=== PATIENT | female | born 1960 | race Caucasian/White ===

== ENCOUNTER 2019-03-14 08:31 | Emergency (ER) | payer MEDICAID ==
[~2019-03-14] VITALS: Ht 154.9 cm; Wt 74.9 kg
[2019-03-14 09:20] LABS: BASOPHILS # (AUTO) 0.1 X10'3 (0-0.2); BASOPHILS % (AUTO) 0.9 % (0-1); EOSINOPHILS # (AUTO) 0.1 X10'3 (0-0.9); EOSINOPHILS % (AUTO) 1.5 % (0-6); HEMATOCRIT 47.5 % (35.0-45.0); HEMOGLOBIN 16.3 g/dl (12.0-16.0); LYMPHOCYTES # (AUTO) 2.4 X10'3 (1.1-4.8); LYMPHOCYTES % (AUTO) 33.2 % (21-51); MEAN CORPUSCULAR HEMOGLOBIN 31.1 PG (27.0-31.0); MEAN CORPUSCULAR HGB CONC 34.4 g/dL (33.0-36.5); MEAN CORPUSCULAR VOLUME 90.5 FL (78-98); MEAN PLATELET VOLUME 8.2 FL (7.4-10.4); MONOCYTES # (AUTO) 0.6 X10'3 (0-0.9); MONOCYTES % (AUTO) 8.5 % (2-12); NEUTROPHILS % (AUTO) 55.9 % (42-75); PLATELET COUNT 274 X10'3 (140-440); RED BLOOD COUNT 5.25 X10'6 (4.20-5.60); WHITE BLOOD COUNT 7.1 X10'3 (4.5-11.0)
[2019-03-14 09:25] LABS: PARTIAL THROMBOPLASTIN TIME 26 SECONDS (22-32)
[2019-03-14] MEDS ORDERED: oxyCODONE IR 5mg (immed. release) tablet PO ONE (09:25)
[2019-03-14 09:41] LABS: ALANINE AMINOTRANSFERASE 52 U/L (12-78); ALBUMIN 3.5 G/DL (3.4-5.0); ALBUMIN/GLOBULIN RATIO 0.8 (1.1-1.5); ALKALINE PHOSPHATASE 117 IU/L (46-116); ANION GAP 12 (8-16); ASPARTATE AMINO TRANSFERASE 38 U/L (10-37); BILIRUBIN,TOTAL 0.3 MG/DL (0.1-1.0); BLOOD UREA NITROGEN 12 MG/DL (7-18); BUN/CREATININE RATIO 17.4 (6.6-38.0); CALCIUM 9.1 MG/DL (8.5-10.1); CHLORIDE 107 MMOL/L (99-107); CREATININE 0.69 MG/DL (0.40-0.90); GLUCOSE 116 MG/DL (70-104); POTASSIUM 4.1 MMOL/L (3.5-5.1); SODIUM 142 MMOL/L (135-145); TOTAL CARBON DIOXIDE 22.8 MMOL/L (24-32); TOTAL PROTEIN 8.1 G/DL (6.4-8.2); eGFR 87 ML/MIN
[2019-03-14 10:09] VITALS: BP 157/101
== END 2019-03-14 10:11 | disposition home or self-care (01) ==
LOC: ER 08:32
DX: R07.89 Other chest pain (principal); Z88.0 Allergy status to penicillin
CPT/HCPCS: 36415; 71045; 80053; 84484; 85025; 85610; 85730; 93005; 99284

== ENCOUNTER 2019-04-11 11:32 | Inpatient (IN) | payer MEDICAID ==
[~2019-04-11] VITALS: Ht 154.9 cm; Wt 72.0 kg
[2019-04-11] MEDS ORDERED: vancomycin/NS 1 GM ADD-VANTAGE 250 ML IV ONE (14:55)
[2019-04-11] MEDS ORDERED: morphine 4 MG/ML inj SYRINge IV ONE (15:15)
[2019-04-11 15:19] LABS: ALBUMIN 3.3 G/DL (3.4-5.0); ANION GAP 9 (8-16); BILIRUBIN,TOTAL 0.2 MG/DL (0.1-1.0); BLOOD UREA NITROGEN 13 MG/DL (7-18); BUN/CREATININE RATIO 16.5 (6.6-38.0); CALCIUM 9.1 MG/DL (8.5-10.1); CHLORIDE 105 MMOL/L (99-107); CREATININE 0.79 MG/DL (0.40-0.90); GLUCOSE 124 MG/DL (70-104); SODIUM 139 MMOL/L (135-145); TOTAL CARBON DIOXIDE 24.7 MMOL/L (24-32); TOTAL PROTEIN 7.9 G/DL (6.4-8.2); eGFR 74 ML/MIN
[2019-04-11 15:20] LABS: ALANINE AMINOTRANSFERASE 17 U/L (12-78); ALBUMIN/GLOBULIN RATIO 0.7 (1.1-1.5); ALKALINE PHOSPHATASE 115 IU/L (46-116); ASPARTATE AMINO TRANSFERASE 21 U/L (10-37)
[2019-04-11 15:22] LABS: BASOPHILS # (AUTO) 0.1 X10'3 (0-0.2); BASOPHILS % (AUTO) 0.8 % (0-1); EOSINOPHILS # (AUTO) 0.1 X10'3 (0-0.9); HEMOGLOBIN 15.8 g/dl (12.0-16.0); LYMPHOCYTES # (AUTO) 3.2 X10'3 (1.1-4.8); LYMPHOCYTES % (AUTO) 27.8 % (21-51); MEAN CORPUSCULAR HEMOGLOBIN 31.2 PG (27.0-31.0); MEAN CORPUSCULAR HGB CONC 34.3 g/dL (33.0-36.5); MEAN PLATELET VOLUME 7.9 FL (7.4-10.4); MONOCYTES # (AUTO) 0.6 X10'3 (0-0.9); MONOCYTES % (AUTO) 4.9 % (2-12); NEUTROPHILS # (AUTO) 7.6 X10'3 (1.8-7.7); NEUTROPHILS % (AUTO) 65.5 % (42-75); PLATELET COUNT 325 X10'3 (140-440); RED BLOOD COUNT 5.05 X10'6 (4.20-5.60); RED CELL DISTRIBUTION WIDTH 12.9 % (11.5-14.5); WHITE BLOOD COUNT 11.5 X10'3 (4.5-11.0)
[2019-04-11] MEDS ORDERED: mag hydrox/Alum hydrox/simeth 30ml oral suspension PO PRN (16:15)
[2019-04-11] MEDS ORDERED: acetaminophen 325mg tablet PO PRN ×2 (16:15)
[2019-04-11] MEDS ORDERED: magnesium hydroxide 30ml (MOM) UD suspension PO PRN (16:15)
[2019-04-11] MEDS ORDERED: ondansetron/PF 4mg/2ml inj IV PRN (16:15)
[2019-04-11] MEDS ORDERED: magnesium Cl slow-release 64mg tablet PO PRN (16:15)
[2019-04-11] MEDS ORDERED: potassium CL 10mEq/100ml bag 100 ML IV PRN ×2 (16:15)
[2019-04-11] MEDS ORDERED: magnesium 4gm in 100ml NS 100 ML IV PRN (16:15)
[2019-04-11] MEDS ORDERED: morphine 2 MG/ML inj. syringe IV PRN ×2 (16:15)
[2019-04-11] MEDS ORDERED: magnesium 2GM in 50ml NS 50 ML IV PRN (16:15)
[2019-04-11] MEDS ORDERED: potassium Cl 20 mEq SR tablet PO PRN ×2 (16:15)
[2019-04-11] MEDS ORDERED: AMOX-580 PO (16:30)
[2019-04-11] MEDS ORDERED: LISI40TA4 PO (16:31)
[2019-04-11] MEDS ORDERED: TEMA15CA PO (16:31)
[2019-04-11] MEDS ORDERED: BUSP7.5T4 PO (16:32)
[2019-04-11] MEDS ORDERED: CETI10TA14 PO (16:32)
[2019-04-11] MEDS ORDERED: ALBU8.5H8 INH (16:33)
[2019-04-11] MEDS ORDERED: BREX2TAB PO (16:45)
[2019-04-11] MEDS ORDERED: SOFO1TAB3 PO (16:45)
[2019-04-11] MEDS ORDERED: cetirizine 10mg tablet PO PRN (18:10)
[2019-04-11] MEDS ORDERED: iohexol 300mg/ml 100ml inj. ONE (18:35)
--- NOTE | 2019-04-11 19:00 | NUR ---
PT ARRIVED TO [facility]014[facility] FROM ER. PT AMBULATED TO BED FROM . VSS. RECEIVED REPORT FROM YAEL WILLIS PRIOR TO PT'S ARRIVAL.
[2019-04-11] MEDS: HYDROcodone/acetaminophen 5mg/325mg tablet PO PRN (19:16)
[2019-04-11 19:18] VITALS: BP 139/80
[2019-04-11] MEDS: SOFOSBUVIR VELPATASVIR PO SCH (20:55)
[2019-04-11] MEDS: BREXPIPRAZOLE 1 MG PO SCH (20:55)
[2019-04-11] MEDS: lisinopril 20mg tablet PO SCH (20:58)
[2019-04-11] MEDS: temazepam 15mg capsule PO SCH (20:58)
[2019-04-11] MEDS: busPIRone 15mg tablet PO SCH (20:58)
[2019-04-11 22:00] VITALS: BP 114/71
[2019-04-12] MEDS: vancomycin/NS 1 GM ADD-VANTAGE 250 ML IV SCH ×2 (03:33→15:58)
[2019-04-12 06:00] VITALS: BP 112/70
[2019-04-12 06:03] LABS: BASOPHILS % (AUTO) 0.2 % (0-1); EOSINOPHILS # (AUTO) 0.2 X10'3 (0-0.9); EOSINOPHILS % (AUTO) 2.1 % (0-6); HEMATOCRIT 42.4 % (35.0-45.0); HEMOGLOBIN 14.5 g/dl (12.0-16.0); LYMPHOCYTES # (AUTO) 2.8 X10'3 (1.1-4.8); LYMPHOCYTES % (AUTO) 37.6 % (21-51); MEAN CORPUSCULAR HEMOGLOBIN 31.2 PG (27.0-31.0); MEAN CORPUSCULAR HGB CONC 34.1 g/dL (33.0-36.5); MEAN CORPUSCULAR VOLUME 91.4 FL (78-98); MEAN PLATELET VOLUME 7.7 FL (7.4-10.4); MONOCYTES # (AUTO) 0.5 X10'3 (0-0.9); NEUTROPHILS % (AUTO) 53.1 % (42-75); PLATELET COUNT 278 X10'3 (140-440); RED BLOOD COUNT 4.64 X10'6 (4.20-5.60); RED CELL DISTRIBUTION WIDTH 12.7 % (11.5-14.5); WHITE BLOOD COUNT 7.5 X10'3 (4.5-11.0)
[2019-04-12 06:16] LABS: ALBUMIN 2.6 G/DL (3.4-5.0); ANION GAP 10 (8-16); BLOOD UREA NITROGEN 14 MG/DL (7-18); BUN/CREATININE RATIO 18.2 (6.6-38.0); CALCIUM 8.6 MG/DL (8.5-10.1); CHLORIDE 108 MMOL/L (99-107); CREATININE 0.77 MG/DL (0.40-0.90); GLUCOSE 97 MG/DL (70-104); POTASSIUM 3.8 MMOL/L (3.5-5.1); SODIUM 141 MMOL/L (135-145); TOTAL CARBON DIOXIDE 23.5 MMOL/L (24-32); eGFR 76 ML/MIN
--- NOTE | 2019-04-12 06:33 | NUR ---
Problems reprioritized. Patient report given, questions answered & plan of care reviewed with cam Oh.
[2019-04-12] MEDS: K and/or MAG REPLACEMENT MC SCH (08:00)
[2019-04-12] MEDS: busPIRone 15mg tablet PO SCH ×2 (08:49→20:25)
[2019-04-12] MEDS: enoxaparin 40mg/0.4ml syringe SQ SCH (08:49)
[2019-04-12 10:15] VITALS: BP 89/33
--- NOTE | 2019-04-12 11:30 | NUR ---
Pt admit w/ R hand cellulitis PO 100% avg heart healthy meals meeting protein needs. Addendum: 04/12/19 at [address] Amended: Links added.
[2019-04-12] MEDS: HYDROcodone/acetaminophen 5mg/325mg tablet PO PRN (17:36)
[2019-04-12 18:00] VITALS: BP 151/86
--- NOTE | 2019-04-12 18:23 | NUR ---
Report to Tierney CONLEY
[2019-04-12] MEDS: lisinopril 20mg tablet PO SCH (20:25)
[2019-04-12] MEDS: lactobacillus rhamnosus 10,000 MMU CELLS/CAPSULE PO SCH (20:25)
[2019-04-12] MEDS: temazepam 15mg capsule PO SCH (20:25)
[2019-04-12] MEDS: SOFOSBUVIR VELPATASVIR PO SCH (20:26)
[2019-04-12] MEDS: BREXPIPRAZOLE 1 MG PO SCH (20:27)
[2019-04-12 22:00] VITALS: BP 113/69
[2019-04-13] MEDS: vancomycin/NS 1 GM ADD-VANTAGE 250 ML IV SCH (02:30)
[2019-04-13] MEDS ORDERED: VANCOMYCIN LEVEL IV ONE (02:30)
[2019-04-13 02:55] LABS: BASOPHILS # (AUTO) 0.1 X10'3 (0-0.2); BASOPHILS % (AUTO) 0.8 % (0-1); EOSINOPHILS # (AUTO) 0.2 X10'3 (0-0.9); EOSINOPHILS % (AUTO) 2.4 % (0-6); HEMATOCRIT 42.3 % (35.0-45.0); HEMOGLOBIN 14.5 g/dl (12.0-16.0); LYMPHOCYTES # (AUTO) 3.1 X10'3 (1.1-4.8); LYMPHOCYTES % (AUTO) 40.8 % (21-51); MEAN CORPUSCULAR HEMOGLOBIN 31.2 PG (27.0-31.0); MEAN CORPUSCULAR HGB CONC 34.4 g/dL (33.0-36.5); MEAN CORPUSCULAR VOLUME 90.7 FL (78-98); MEAN PLATELET VOLUME 7.6 FL (7.4-10.4); MONOCYTES # (AUTO) 0.5 X10'3 (0-0.9); MONOCYTES % (AUTO) 7.2 % (2-12); NEUTROPHILS # (AUTO) 3.7 X10'3 (1.8-7.7); NEUTROPHILS % (AUTO) 48.8 % (42-75); PLATELET COUNT 272 X10'3 (140-440); RED BLOOD COUNT 4.66 X10'6 (4.20-5.60); RED CELL DISTRIBUTION WIDTH 12.5 % (11.5-14.5); WHITE BLOOD COUNT 7.6 X10'3 (4.5-11.0)
[2019-04-13 03:09] LABS: ALBUMIN 2.7 G/DL (3.4-5.0); ANION GAP 9 (8-16); BLOOD UREA NITROGEN 16 MG/DL (7-18); BUN/CREATININE RATIO 23.5 (6.6-38.0); CALCIUM 8.6 MG/DL (8.5-10.1); CHLORIDE 108 MMOL/L (99-107); CREATININE 0.68 MG/DL (0.40-0.90); GLUCOSE 93 MG/DL (70-104); POTASSIUM 4.2 MMOL/L (3.5-5.1); SODIUM 143 MMOL/L (135-145); TOTAL CARBON DIOXIDE 26.4 MMOL/L (24-32); VANCOMYCIN,TROUGH 10.5 UG/ML (6.0-14.0); eGFR 88 ML/MIN
[2019-04-13 06:17] VITALS: BP 149/89
--- NOTE | 2019-04-13 06:17 | NUR ---
Problems reprioritized. Patient report given, questions answered & plan of care reviewed with YAEL RICO.
[2019-04-13] MEDS: K and/or MAG REPLACEMENT MC SCH (08:00)
[2019-04-13] MEDS: lactobacillus rhamnosus 10,000 MMU CELLS/CAPSULE PO SCH ×2 (09:00→20:31)
[2019-04-13] MEDS: busPIRone 15mg tablet PO SCH ×2 (09:00→20:31)
[2019-04-13] MEDS: enoxaparin 40mg/0.4ml syringe SQ SCH (09:00)
[2019-04-13 10:00] VITALS: BP 138/85
[2019-04-13] MEDS: VANCOmycin 1250MG/NS 250ml Bag 250 ML IV SCH (16:20)
[2019-04-13 18:00] VITALS: BP 155/84
[2019-04-13] MEDS: HYDROcodone/acetaminophen 5mg/325mg tablet PO PRN ×2 (19:51→23:29)
[2019-04-13] MEDS: temazepam 15mg capsule PO SCH (20:31)
[2019-04-13] MEDS: lisinopril 20mg tablet PO SCH (20:36)
[2019-04-13] MEDS: SOFOSBUVIR VELPATASVIR PO SCH (21:00)
[2019-04-13] MEDS: BREXPIPRAZOLE 1 MG PO SCH (21:00)
[2019-04-13 22:00] VITALS: BP 133/83
[2019-04-14] MEDS: VANCOmycin 1250MG/NS 250ml Bag 250 ML IV SCH (02:26)
[2019-04-14 06:00] VITALS: BP 152/76
--- NOTE | 2019-04-14 06:39 | NUR ---
Problems reprioritized. Patient report given, questions answered & plan of care reviewed with YAEL MALDONADO.
[2019-04-14 07:05] LABS: BASOPHILS # (AUTO) 0.1 X10'3 (0-0.2); BASOPHILS % (AUTO) 0.7 % (0-1); EOSINOPHILS # (AUTO) 0.2 X10'3 (0-0.9); EOSINOPHILS % (AUTO) 2.1 % (0-6); HEMATOCRIT 46.3 % (35.0-45.0); LYMPHOCYTES # (AUTO) 3.3 X10'3 (1.1-4.8); LYMPHOCYTES % (AUTO) 39.2 % (21-51); MEAN CORPUSCULAR HEMOGLOBIN 30.9 PG (27.0-31.0); MEAN CORPUSCULAR HGB CONC 34.5 g/dL (33.0-36.5); MEAN CORPUSCULAR VOLUME 89.4 FL (78-98); MEAN PLATELET VOLUME 7.6 FL (7.4-10.4); MONOCYTES # (AUTO) 0.6 X10'3 (0-0.9); NEUTROPHILS # (AUTO) 4.3 X10'3 (1.8-7.7); PLATELET COUNT 326 X10'3 (140-440); RED BLOOD COUNT 5.18 X10'6 (4.20-5.60); RED CELL DISTRIBUTION WIDTH 12.7 % (11.5-14.5); WHITE BLOOD COUNT 8.4 X10'3 (4.5-11.0)
[2019-04-14 07:15] LABS: ANION GAP 10 (8-16); BLOOD UREA NITROGEN 14 MG/DL (7-18); BUN/CREATININE RATIO 20.6 (6.6-38.0); CALCIUM 8.9 MG/DL (8.5-10.1); CHLORIDE 107 MMOL/L (99-107); CREATININE 0.68 MG/DL (0.40-0.90); GLUCOSE 80 MG/DL (70-104); MAGNESIUM 2.3 MG/DL (1.5-2.4); POTASSIUM 4.3 MMOL/L (3.5-5.1); SODIUM 141 MMOL/L (135-145); TOTAL CARBON DIOXIDE 24.1 MMOL/L (24-32); eGFR 88 ML/MIN
[2019-04-14] MEDS: K and/or MAG REPLACEMENT MC SCH (08:00)
[2019-04-14] MEDS: busPIRone 15mg tablet PO SCH (08:48)
[2019-04-14] MEDS: lactobacillus rhamnosus 10,000 MMU CELLS/CAPSULE PO SCH (08:48)
[2019-04-14] MEDS: enoxaparin 40mg/0.4ml syringe SQ SCH (08:49)
[2019-04-14] MEDS: HYDROcodone/acetaminophen 5mg/325mg tablet PO PRN (09:34)
[2019-04-14] MEDS ORDERED: LINE600T12 PO (13:02)
[2019-04-15] MEDS ORDERED: VANCOMYCIN LEVEL IV ONE (02:30)
== END 2019-04-14 14:35 | disposition home or self-care (01) | DRG 383 ==
LOC: ER 11:33 → ED HOLD 16:29 → ORTHO 4S 19:00
PROVIDERS: ADMIT Hospitalist; ATTEND Hospitalist
DX: L03.113 Cellulitis of right upper limb (principal); B19.20 Unspecified viral hepatitis C without hepatic coma; B95.62 Methicillin resistant Staphylococcus aureus infection as the cause of diseases classified elsewhere; F12.90 Cannabis use, unspecified, uncomplicated; I10 Essential (primary) hypertension; J44.9 Chronic obstructive pulmonary disease, unspecified; L02.511 Cutaneous abscess of right hand
CPT/HCPCS: 36415; 73120; 73201; 80048; 80053; 80202; 83605; 83735; 84145; 85025; 87040; 87081; 96365; 96375; 99285; G0378; J1650; J2270; J3370; Q9967

== ENCOUNTER 2020-01-10 11:53 | Emergency (ER) | payer MEDICAID ==
[~2020-01-10] VITALS: Ht 154.9 cm; Wt 60.0 kg
[~2020-01-10 11:53] MED LIST: ALBU8.5H8 INH; BREX2TAB PO; BUSP7.5T4 PO; CETI10TA14 PO; LISI40TA4 PO; SOFO1TAB3 PO; TEMA15CA PO
[2020-01-10 11:59] VITALS: BP 137/85
[2020-01-10] MEDS ORDERED: CETI10TA15 PO (12:34)
== END 2020-01-10 12:41 | disposition home or self-care (01) ==
LOC: ER 11:54
DX: H10.13 Acute atopic conjunctivitis, bilateral (principal); J30.9 Allergic rhinitis, unspecified; J44.9 Chronic obstructive pulmonary disease, unspecified; I10 Essential (primary) hypertension; F12.90 Cannabis use, unspecified, uncomplicated; Z86.19 Personal history of other infectious and parasitic diseases; Z79.899 Other long term (current) drug therapy
CPT/HCPCS: 99283

== ENCOUNTER 2020-02-19 08:51 | Emergency (ER) | payer MEDICAID ==
[~2020-02-19 08:51] MED LIST changes: -BUSP7.5T4 PO; +BUSP7.5T5 PO; +CETI10TA15 PO
[2020-02-19 08:55] VITALS: BP 132/82
--- NOTE | 2020-02-19 09:13 | NUR ---
Pt to xray
== END 2020-02-19 10:18 | disposition home or self-care (01) ==
LOC: ER 08:51
DX: M25.562 Pain in left knee (principal); I10 Essential (primary) hypertension; J44.9 Chronic obstructive pulmonary disease, unspecified; F12.90 Cannabis use, unspecified, uncomplicated; Z86.19 Personal history of other infectious and parasitic diseases; Z98.890 Other specified postprocedural states; Z79.899 Other long term (current) drug therapy
CPT/HCPCS: 29505; 73564; 99283

== ENCOUNTER 2020-07-20 16:07 | Emergency (ER) | payer MEDICAID ==
[~2020-07-20] VITALS: Ht 154.9 cm; Wt 74.1 kg
[~2020-07-20 16:07] MED LIST changes: +LISI40TA13 PO; -LISI40TA4 PO
[2020-07-20 16:55] LABS: BASOPHILS # (AUTO) 0.1 X10'3 (0-0.2); BASOPHILS % (AUTO) 0.6 % (0-1); EOSINOPHILS # (AUTO) 0.1 X10'3 (0-0.9); EOSINOPHILS % (AUTO) 0.9 % (0-6); HEMATOCRIT 40.7 % (35.0-45.0); HEMOGLOBIN 13.7 g/dl (12.0-16.0); LYMPHOCYTES # (AUTO) 3.7 X10'3 (1.1-4.8); MEAN CORPUSCULAR HEMOGLOBIN 29.4 PG (27.0-31.0); MEAN CORPUSCULAR HGB CONC 33.8 g/dL (33.0-36.5); MEAN CORPUSCULAR VOLUME 86.9 FL (78-98); MEAN PLATELET VOLUME 7.8 FL (7.4-10.4); MONOCYTES # (AUTO) 0.7 X10'3 (0-0.9); MONOCYTES % (AUTO) 6.6 % (2-12); NEUTROPHILS # (AUTO) 6.6 X10'3 (1.8-7.7); NEUTROPHILS % (AUTO) 58.9 % (42-75); PLATELET COUNT 258 X10'3 (140-440); RED BLOOD COUNT 4.68 X10'6 (4.20-5.60); RED CELL DISTRIBUTION WIDTH 13.2 % (11.5-14.5); WHITE BLOOD COUNT 11.2 X10'3 (4.5-11.0)
[2020-07-20 17:08] LABS: D-DIMER 0.49 MG/L FEU (0-0.50)
[2020-07-20 17:09] LABS: ALANINE AMINOTRANSFERASE 27 U/L (12-78); ALBUMIN 3.6 G/DL (3.4-5.0); ALKALINE PHOSPHATASE 121 IU/L (46-116); ANION GAP 7 (8-16); ASPARTATE AMINO TRANSFERASE 16 U/L (10-37); BILIRUBIN,TOTAL 0.2 MG/DL (0.1-1.0); BLOOD UREA NITROGEN 17 MG/DL (7-18); BUN/CREATININE RATIO 23.6 (6.6-38.0); CALCIUM 9.1 MG/DL (8.5-10.1); CHLORIDE 105 MMOL/L (99-107); CREATININE 0.72 MG/DL (0.40-0.90); GLUCOSE 86 MG/DL (70-104); POTASSIUM 4.2 MMOL/L (3.5-5.1); SODIUM 139 MMOL/L (135-145); TOTAL CARBON DIOXIDE 26.8 MMOL/L (24-32); TOTAL PROTEIN 7.2 G/DL (6.4-8.2); eGFR 82 ML/MIN
[2020-07-20] MEDS ORDERED: ondansetron 4mg rapidly disintigrating tab PO ONE (17:20)
[2020-07-20] MEDS ORDERED: acetaminophen 325mg tablet PO ONE (17:20)
[2020-07-20] MEDS ORDERED: LORazepam 1 MG tablet PO ONE (17:35)
[2020-07-20 21:26] VITALS: BP 159/88
== END 2020-07-20 21:28 | disposition home or self-care (01) ==
LOC: ER 16:08
DX: R07.89 Other chest pain (principal); R51.9 Headache, unspecified; M79.602 Pain in left arm; R20.0 Anesthesia of skin; R53.1 Weakness; I10 Essential (primary) hypertension; J44.9 Chronic obstructive pulmonary disease, unspecified; F12.90 Cannabis use, unspecified, uncomplicated; Z86.19 Personal history of other infectious and parasitic diseases; Z98.890 Other specified postprocedural states; Z79.899 Other long term (current) drug therapy
CPT/HCPCS: 36415; 71045; 80053; 83880; 84484; 85025; 85379; 93005; 99285

== ENCOUNTER 2020-08-18 07:42 | Emergency (ER) | payer MEDICAID ==
[~2020-08-18] VITALS: Ht 157.5 cm; Wt 77.3 kg
[~2020-08-18 07:42] MED LIST changes: -ALBU8.5H8 INH; -BREX2TAB PO; -BUSP7.5T5 PO; -CETI10TA14 PO; -CETI10TA15 PO; -SOFO1TAB3 PO; -TEMA15CA PO
[2020-08-18] MEDS ORDERED: LORazepam 1 MG tablet PO ONE (08:15)
[2020-08-18 08:19] LABS: BASOPHILS # (AUTO) 0.1 X10'3 (0-0.2); BASOPHILS % (AUTO) 0.7 % (0-1); EOSINOPHILS # (AUTO) 0.1 X10'3 (0-0.9); EOSINOPHILS % (AUTO) 1.7 % (0-6); HEMATOCRIT 43.6 % (35.0-45.0); HEMOGLOBIN 14.6 g/dl (12.0-16.0); LYMPHOCYTES # (AUTO) 2.6 X10'3 (1.1-4.8); LYMPHOCYTES % (AUTO) 32.1 % (21-51); MEAN CORPUSCULAR HEMOGLOBIN 29.5 PG (27.0-31.0); MEAN CORPUSCULAR HGB CONC 33.5 g/dL (33.0-36.5); MEAN CORPUSCULAR VOLUME 88.3 FL (78-98); MEAN PLATELET VOLUME 7.9 FL (7.4-10.4); MONOCYTES # (AUTO) 0.6 X10'3 (0-0.9); NEUTROPHILS # (AUTO) 4.7 X10'3 (1.8-7.7); NEUTROPHILS % (AUTO) 58.5 % (42-75); PLATELET COUNT 322 X10'3 (140-440); RED BLOOD COUNT 4.94 X10'6 (4.20-5.60)
[2020-08-18 08:53] LABS: ALANINE AMINOTRANSFERASE 28 U/L (12-78); ALBUMIN 3.5 G/DL (3.4-5.0); ALBUMIN/GLOBULIN RATIO 0.9 (1.1-1.5); ALKALINE PHOSPHATASE 95 IU/L (46-116); ANION GAP 10 (8-16); BILIRUBIN,TOTAL 0.3 MG/DL (0.1-1.0); BLOOD UREA NITROGEN 16 MG/DL (7-18); BUN/CREATININE RATIO 22.2 (6.6-38.0); CALCIUM 8.9 MG/DL (8.5-10.1); CHLORIDE 106 MMOL/L (99-107); CREATININE 0.72 MG/DL (0.40-0.90); GLUCOSE 117 MG/DL (70-104); SODIUM 138 MMOL/L (135-145); TOTAL CARBON DIOXIDE 22.5 MMOL/L (24-32); TOTAL PROTEIN 7.5 G/DL (6.4-8.2); eGFR 82 ML/MIN
[2020-08-18 09:00] LABS: ASPARTATE AMINO TRANSFERASE 28 U/L (10-37); POTASSIUM 4.3 MMOL/L (3.5-5.1)
[2020-08-18 09:56] VITALS: BP 153/85
== END 2020-08-18 10:15 | disposition home or self-care (01) ==
LOC: ER 07:43
DX: R42 Dizziness and giddiness (principal); F41.9 Anxiety disorder, unspecified; R20.0 Anesthesia of skin; I10 Essential (primary) hypertension; J44.9 Chronic obstructive pulmonary disease, unspecified; F12.90 Cannabis use, unspecified, uncomplicated; Z86.19 Personal history of other infectious and parasitic diseases; Z98.890 Other specified postprocedural states; Z79.899 Other long term (current) drug therapy
CPT/HCPCS: 36415; 71045; 80053; 83735; 83880; 84484; 85025; 93005; 99285

== ENCOUNTER 2020-09-29 16:05 | Emergency (ER) | payer MEDICAID ==
[~2020-09-29] VITALS: Ht 157.5 cm; Wt 79.6 kg
[2020-09-29 17:54] VITALS: BP 128/82
== END 2020-09-29 17:55 | disposition home or self-care (01) ==
LOC: ER 16:07
DX: R50.9 Fever, unspecified (principal); R06.02 Shortness of breath; R51.9 Headache, unspecified; R11.0 Nausea; I10 Essential (primary) hypertension; J44.9 Chronic obstructive pulmonary disease, unspecified; Z86.19 Personal history of other infectious and parasitic diseases; F12.90 Cannabis use, unspecified, uncomplicated; Z98.890 Other specified postprocedural states; Z79.899 Other long term (current) drug therapy
CPT/HCPCS: 99282

== ENCOUNTER 2021-01-03 09:41 | Day surgery (SDC) | payer MEDICAID ==
[2020-12-26 16:10] LABS: BASOPHILS # (AUTO) 0.1 X10'3 (0-0.2); BASOPHILS % (AUTO) 0.5 % (0-1); EOSINOPHILS # (AUTO) 0.2 X10'3 (0-0.9); EOSINOPHILS % (AUTO) 1.7 % (0-6); LYMPHOCYTES # (AUTO) 3.2 X10'3 (1.1-4.8); LYMPHOCYTES % (AUTO) 29.9 % (21-51); MEAN CORPUSCULAR HEMOGLOBIN 29.4 PG (27.0-31.0); MEAN CORPUSCULAR HGB CONC 33.8 g/dL (33.0-36.5); MEAN CORPUSCULAR VOLUME 86.9 FL (78-98); MEAN PLATELET VOLUME 7.8 FL (7.4-10.4); MONOCYTES # (AUTO) 0.8 X10'3 (0-0.9); MONOCYTES % (AUTO) 7.6 % (2-12); NEUTROPHILS # (AUTO) 6.5 X10'3 (1.8-7.7); NEUTROPHILS % (AUTO) 60.3 % (42-75); PRE OP HEMATOCRIT 44.7 % (35.0-45.0); PRE OP HEMOGLOBIN 15.1 g/dL (12.0-16.0); PRE OP PLATELET COUNT 334 X10'3 (140-440); RED BLOOD COUNT 5.14 X10'6 (4.20-5.60); RED CELL DISTRIBUTION WIDTH 14.2 % (11.5-14.5)
[2020-12-26 16:26] LABS: ALBUMIN 3.9 G/DL (3.4-5.0); ALKALINE PHOSPHATASE 105 IU/L (46-116); BLOOD UREA NITROGEN 12 MG/DL (7-18); BUN/CREATININE RATIO 14.6 (6.6-38.0); CALCIUM 8.9 MG/DL (8.5-10.1); CHLORIDE 105 MMOL/L (99-107); CREATININE 0.82 MG/DL (0.40-0.90); PRE OP ALT 28 U/L (30-65); PRE OP ANION GAP 10 (8-16); PRE OP AST 20 U/L (10-37); PRE OP BILIRUB, TOTAL 0.3 MG/DL (0.0-1.0); PRE OP GLUCOSE 98 MG/DL (70-104); PRE OP POTASSIUM 4.1 MMOL/L (3.4-5.1); PRE OP SODIUM 142 MMOL/L (135-145); TOTAL CARBON DIOXIDE 27.3 MMOL/L (24-32); TOTAL PROTEIN 7.7 G/DL (6.4-8.2); eGFR 71 ML/MIN
[2021-01-03] VITALS (10 sets, daily range): BP systolic 146–175; BP diastolic 85–105
[~2021-01-03] VITALS: Ht 157.5 cm; Wt 77.9 kg
[~2021-01-03 09:41] MED LIST changes: +ALBU8.5H17 INH; +ATOR40TA PO; +BUSP15TA3 PO; +CETI10TA15 PO; +DICL150D9 TOP; +GABA600T13 PO; +TEMA15CA TD; +cefazolin/dext.iso 2gm/100ml IV ONE; +famotidine 20mg tablet PO ONE; +ringers solution, lacted 1,000 ML IV SCH; +vancomycin 1,500 MG in NS 300ml IV soln IV ONE
[2021-01-03] MEDS ORDERED: ipratropium/albuterol 3ml nebule IH ONE (12:20)
[2021-01-03] MEDS ORDERED: BUPIVAcaine/PF 2.5mg/ml (0.25%) 10ml vial ONE (13:10)
[2021-01-03] MEDS ORDERED: ringers solution, lacted 1,000 ML IV SCH (13:20)
[2021-01-03] MEDS ORDERED: ondansetron/PF 4mg/2ml inj IV PRN (13:20)
[2021-01-03] MEDS ORDERED: meperidine/PF 25mg/ml syringe IV PRN ×3 (13:20)
[2021-01-03] MEDS ORDERED: proCHLORperazine 10 MG/2 ml inj IV PRN (13:20)
[2021-01-03] MEDS ORDERED: morphine 4 MG/ML inj SYRINge IV PRN (13:20)
[2021-01-03] MEDS ORDERED: morphine 2 MG/ML inj. syringe IV PRN (13:20)
[2021-01-03] MEDS ORDERED: fentaNYL/PF 50MCG/1 ML 2ML syringe ONE ×2 (14:12→14:34)
[2021-01-03] MEDS ORDERED: midazolam 1 mg/ML 2ml injection ONE (14:12)
[2021-01-03] MEDS ORDERED: triamcinolone acetonide 40mg/ml inj ONE (14:50)
[2021-01-03] MEDS ORDERED: acetaminophen 1,000mg/100ml IV 100 ML IV ONE (15:24)
[2021-01-03] MEDS ORDERED: dexamethasone sod phosphate 4mg/ml inj. ONE (15:24)
[2021-01-03] MEDS ORDERED: LIDOcaine 2% (20mg/ml) 5ml vial ONE (15:24)
[2021-01-03] MEDS ORDERED: ketorolac trometh. 30mg/ml inj. ONE (15:24)
[2021-01-03] MEDS ORDERED: ondansetron/PF 4mg/2ml inj ONE (15:24)
[2021-01-03] MEDS ORDERED: propofol inj 20 ML IV ONE (15:24)
--- NOTE | 2021-01-03 15:24 | NUR ---
Received from OR via [facility] , accompanied by Anesthesiologist CAMERON and report given by Anesthesiolgist. PATIENT WITH 20G PIV IN RIGHT UE RUNNING LR AT 100. VSS. LEFT KNEE IN BIAS WRAP THAT IS CDI. + DP TO LEFT FOOT Addendum: 01/03/21 at 1540 by Sai Garzon RN, RN Amended: Links added.
--- NOTE | 2021-01-03 16:54 | NUR ---
ALL DISCHARGE CRITERIA HAS BEEN MET. VSS, PAIN AT A TOLERABLE LEVEL, VOIDING AND ABLE TO SAFELY AMBULATE AND TRANSFER SELF. IV TAKEN OUT WITHOUT ANY COMPLICATIONS. ALL DISCHARGE INSTRUCTIONS COVERED WITH PATIENT AND ALL QUESTIONS ANSWERED. PATIENT TAKEN OUT VIA WHEELCHAIR TO PERSONAL VEHICLE WHERE FAMILY/FRIEND DROVE PATIENT HOME. Addendum: 01/03/21 at 1712 by Sai Garzon RN, RN Amended: Links added.
== END 2021-01-03 16:54 | disposition home or self-care (01) ==
LOC: PRE-OP 09:41 → PAS 16:54
PROVIDERS: ATTEND Orthopaedic Surgery
DX: S83.232A Complex tear of medial meniscus, current injury, left knee, initial encounter (principal); S83.272A Complex tear of lateral meniscus, current injury, left knee, initial encounter; M94.262 Chondromalacia, left knee; F41.9 Anxiety disorder, unspecified; I10 Essential (primary) hypertension; E78.5 Hyperlipidemia, unspecified; J44.9 Chronic obstructive pulmonary disease, unspecified; M17.12 Unilateral primary osteoarthritis, left knee; E66.8 Other obesity; Z68.34 Body mass index [BMI] 34.0-34.9, adult; E11.9 Type 2 diabetes mellitus without complications; F43.10 Post-traumatic stress disorder, unspecified; Z96.641 Presence of right artificial hip joint; Z96.642 Presence of left artificial hip joint; Z79.899 Other long term (current) drug therapy; Z87.891 Personal history of nicotine dependence; Z85.828 Personal history of other malignant neoplasm of skin; Z86.19 Personal history of other infectious and parasitic diseases; F12.90 Cannabis use, unspecified, uncomplicated; X58.XXXA Exposure to other specified factors, initial encounter; Y93.89 Activity, other specified; Y92.89 Other specified places as the place of occurrence of the external cause; Y99.8 Other external cause status
CPT/HCPCS: 29873; 29879; 29880; 36415; 80053; 82948; 85025; 93005; 94640; 94760; J0131; J1100; J1885; J2001; J2175; J2250; J2270; J2405; J2704; J3010; J3301; J3370; J3490; J7040; Z7506; Z7508; Z7512; A4215; A4618; A6250; A6449; A7000; J7120

== ENCOUNTER 2021-09-05 11:22 | Emergency (ER) | payer MEDICAID ==
[~2021-09-05] VITALS: Ht 154.9 cm; Wt 77.3 kg
[~2021-09-05 11:22] MED LIST changes: -cefazolin/dext.iso 2gm/100ml IV ONE; -famotidine 20mg tablet PO ONE; -ringers solution, lacted 1,000 ML IV SCH; -vancomycin 1,500 MG in NS 300ml IV soln IV ONE
[2021-09-05 11:40] VITALS: BP 111/71
[2021-09-05] MEDS ORDERED: TETRAcaine 0.5% ophthalmic drops 15ml EACHEYE ONE (11:50)
[2021-09-05] MEDS ORDERED: proparacaine 0.5% ophthalmic drops 15ml EACHEYE ONE (11:55)
== END 2021-09-05 14:04 | disposition home or self-care (01) ==
LOC: ER 11:23
DX: H11.31 Conjunctival hemorrhage, right eye (principal); I10 Essential (primary) hypertension; J44.9 Chronic obstructive pulmonary disease, unspecified; F12.10 Cannabis abuse, uncomplicated; Z79.899 Other long term (current) drug therapy
CPT/HCPCS: 99283

== ENCOUNTER 2025-04-28 12:19 | Emergency (ER) | payer OTHER, MEDICAID ==
[~2025-04-28] VITALS: Ht 154.9 cm; Wt 70.8 kg
[~2025-04-28 12:19] MED LIST changes: +DICL150D11 TOP; -DICL150D9 TOP; +GABA-1405 PO; -GABA600T13 PO; -LISI40TA13 PO; +LISI40TA20 PO
--- NOTE | 2025-04-28 12:39 | ELECTROCARDIOGRAPH REPORT ---
[facility] Test Date: 2025-04-28 Test Time: 12:25:37 Pat Name: LENA BONNER Department: EMERGENCY ROOM Room: Gender: F Information Systems Security Officer: PARAMJIT : 1960 Requested By: TONY ESPINOSA Order Number: [id number] Reading MD: Dr. LYNDON Quiroz Measurements Intervals [place] Rate: 70 P: 73 VT: 136 QRS: 39 QRSD: 89 T: 89 QT: 361 QTc: 390 Interpretive Statements Sinus rhythm Low voltage, precordial leads Borderline repolarization abnormality Electronically Signed On 04-29-2025 19:22:[address] LYNDON Quiroz Please click the below link to view image of tracing.
[2025-04-28 12:51] LABS: MEAN PLATELET VOLUME 8.0 FL (7.4-10.4); RED CELL DISTRIBUTION WIDTH 15.0 % (11.5-14.5)
--- NOTE | 2025-04-28 12:59 | RADIOLOGY REPORT ---
CHEST RADIOGRAPH Indication: CP Technique: Single frontal view of the chest was obtained COMPARISON: None FINDINGS: Lines and Tubes: None Lungs: Clear Pleura: No effusion. No pneumothorax. Cardiomediastinal contours: Unremarkable Bones: No acute osseous abnormality. Median sternotomy. IMPRESSION: No acute disease.
[2025-04-28 13:13] LABS: CREATININE 0.88 MG/DL (0.40-0.90); PRO BRAIN NATRIURETIC PEPTIDE 110 PG/ML (0-125); TOTAL CARBON DIOXIDE 26.5 MMOL/L (24-32); eCRCL 47 ML/MIN; eGFR 64 ML/MIN
[2025-04-28] MEDS ORDERED: PRAZ2CAP2 PO (16:02)
[2025-04-28] MEDS ORDERED: SEMA1PEN3 SUBCUT (16:02)
[2025-04-28] MEDS ORDERED: PREG100C PO (16:02)
--- NOTE | 2025-04-28 16:04 | Physician Documentation ---
History of Present Illness ~ Chief Complaint: Shortness of Breath Stated Complaint: SOB CP Time Seen by MD: 15:14 Primary Medical Doctor: LESLIE Goldberg Source: patient Mode of Arrival: POV Exam Limitations: no limitations HPI 64-year-old female who is here with left-sided chest and arm pain which she states she currently does not have but she had four days ago. She states the symptoms occurred when she woke up in the morning 4days ago. Symptoms have not been consistent. She is not sure if her symptoms are due to being concerned about running out of her medications as she is about to run out of her prazosin, Ozempic and Lyrica. She does not have a primary care provider here. She is getting ready to go back to [place] where she lives most of the year. She states she does have quite a bit of anxiety about her heart because she has a history of a bypass surgery back in 2022 but states that she has been told that she is doing very well from a cardiac standpoint. Patient denies any fever, chills, shortness of breath, cough, abdominal pain, nausea, vomiting. Medication Reconciliation Allergies: Coded Allergies: No Known Allergies (Unverified , 01/10/20) Scheduled Atorvastatin Calcium* (Lipitor*), 1 TAB PO DAILY, (Reported) Buspirone HCl (Buspirone HCl), 1 TAB PO DAILY, (Reported) Diclofenac Sodium (Diclofenac Sodium), 15 APPLIC TOP Q6H, (Reported) Gabapentin (Gabapentin), 1 TAB PO Q12H, (Reported) Lisinopril* (Lisinopril*), 1 TAB PO HS, (Reported) Prazosin Hcl (Prazosin Hcl), 1 CAP PO HS Pregabalin (Lyrica), 1 CAP PO Q12H Semaglutide (Ozempic), 1 MG SUBCUT Q7D Temazepam (Temazepam), 1 APPLIC TD DAILY, (Reported) Scheduled PRN Albuterol Sulfate (Proair Hfa), 2 PUFFS INH Q4HPRN PRN for wheezing, (Reported) Cetirizine HCl (Cetirizine HCl), 1 TAB PO PRN PRN for allergies, (Reported) Past Medical History Past Medical History: Hypertension, COPD, Hepatitis C, Liver Disease Past Surgical History: orthopedic surgeries Alcohol Use: None Drug Use: marijuana Lives with: Family Lives In: Home Review of Systems All Other Systems at this time: Reviewed and Negative Physical Exam Vital Signs: Temperature: 97.8, Heart Rate: 77, Respiratory Rate: 15, BP: 132/98, Pulse Oximetry: 100, Weight: 70.800 Oxygen Flow Rate: 0 Physical Exam GENERAL: Alert, no acute distress. HEENT: NCAT, EOMI, PERRL, normal oropharynx, moist oral mucosa. NECK: Supple, trachea midline. CARDIAC: Regular rate and rhythm, no murmurs, rubs, or gallops. Equal distal pulses. No lower extremity edema, cap refill less than 2 seconds. RESPIRATORY: Equal breath sounds, clear to auscultation bilaterally, no respiratory distress. GASTROINTESTINAL: Normoactive bowel sounds x4 quadrants, non distended, soft, nontender, No guarding or rebound. MUSCULOSKELETAL: Normal range of motion, nontender, no swelling. Normal gait. NEUROLOGICAL: Awake, alert, and oriented x 3. SKIN: Warm/dry, no pallor, no rash. PSYCH: Alert and appropriate. Affect congruent with mood. Speech is clear. Good eye contact. Progress Results/Orders Results/Orders Vital Signs 04/28/25 04/28/25 04/28/25 12:31 15:52 16:26 Temp 97.8 97.8 Pulse 73 77 76 Resp 16 15 19 B/P (MAP) 129/71 132/98 (109) 141/98 Pulse Ox 98 100 98 O2 Flow Rate 0 Laboratory Tests Test 04/28/25 12:30 04/28/25 14:26 04/28/25 15:47 White Blood Count 12.4 H Red Blood Count 5.70 H Hemoglobin 16.1 H Hematocrit 47.5 H Mean Corpuscular Volume 83.3 Mean Corpuscular Hemoglobin 28.3 Mean Corpuscular Hemoglobin Concent 34.0 Red Cell Distribution Width 15.0 H Platelet Count 325 Mean Platelet Volume 8.0 Neutrophils (%) (Auto) 75.9 H Lymphocytes (%) (Auto) 18.7 L Monocytes (%) (Auto) 4.3 Eosinophils (%) (Auto) 0.4 Basophils (%) (Auto) 0.7 Neutrophils # (Auto) 9.4 H Lymphocytes # (Auto) 2.3 Monocytes # (Auto) 0.5 Eosinophils # (Auto) 0.0 Basophils # (Auto) 0.1 CBC Comment Sodium Level 139 Potassium Level 3.4 L Chloride Level 102 Carbon Dioxide Level 26.5 Anion Gap 11 Blood Urea Nitrogen 12 Creatinine 0.88 Estimated GFR/1.73 m2 64 BUN/Creatinine Ratio 13.6 Glucose Level 160 H Calcium Level 8.8 Troponin I High Sensitivity 4 5 4 Pro-B-Type Natriuretic Peptide 110 Albumin 4.5 Chemistry Comments Troponin I High Sens Percent Delta 25 20 Troponin I Hi Sens Absolute Change 1 -1 Heart Score: Heart Score Response (Comments) Value History Slightly Suspicious 0 EKG Normal 0 Age >65 2 Risk Factors 1 or 2 risk factors 1 Troponin Normal limit 0 Total 3 Medical Decision Making Additional information obtaine: N/A Findings n/a Heart Score: 3 Differential Dx:Considerations: Include: anxiety, asthma, bronchitis, cardiogenic shock, CHF, COPD, dysrhythmia, hypertension, accelerated, hypertension, essential, hypertension, malignant, hyperventilation, hyponatremia, myocardial infarction, panic attack, pneumonia, pneumonitis, pneumothorax, PSVT, pulmonary embolism, respiratory distress, respiratory failure, sinusitis, upper resp. infection, other Additional Infomation CHEST XRAY, EKG, LABS UNREMARKABLE AND PATIENT CURRENTLY ASYMPTOMATIC Departure Time of Disposition: 16:04 Disposition: 01 HOME / SELF CARE / HOMELESS Impression: Primary Impression: Chest pain, unspecified Qualified Codes: R07.89 - Other chest pain Additional Impression: Arm pain, left Condition: Stable Discharge Instructions: Nonspecific Chest Pain, Adult, [id number] Additional Instructions: SUSPECT MSK ETIOLOGY IT APPEARS YOU HAVE SCOLIOSIS AND MAYBE THIS IS CONTRIBUTING TO SOME UPPER BACK AND LEFT ARM PAIN YOUR TROPONINS X 3 ARE NEGATIVE YOU ARE CURRENTLY NOT SHORT OF BREATH OTHER ETIOLOGIES SUCH PULMONARY EMBOLISM CONSIDERED; HOWEVER, WITHOUT HYP OXIA, ELEVATED HEART RATE AND THE FACT YOU ARE NO LONGER SHORT OF BREATH MAKES THIS UNLIKELY BUT IF SYMPTOMS RETURN YOU SHOULD RETURN TO ER FOR RE-EVALUATION F/U WITH PCP WITHIN THE NEXT 2WEEKS Referrals: NO PRIMARY CARE PROVIDER (PCP) Prescriptions Prazosin Hcl (Prazosin Hcl) 2 Mg Capsule 1 CAP PO HS for 30 Days, #30 CAP 0 Refills Prov: RASHI CARRASCO 04/28/25 Pregabalin (Lyrica) 100 Mg Capsule 1 CAP PO Q12H for 30 Days, #60 CAP 0 Refills DX: BACK PAIN M54.51; AND HIP PAIN Prov: RASHI CARRASCO 04/28/25 Semaglutide (Ozempic) 1 Mg/0.75 Ml (4 Mg/3 Ml) Pen.injctr 1 MG SUBCUT Q7D for 30 Days, #3 ML 0 Refills Prov: RASHI CARRASCO 04/28/25 Education Educated: Patient Educated regarding: diagnosis, treatment, need for follow up Signature Scribe Signature: x Attestation: RASHI Dunham Apr 28, 2025 16:04
[2025-04-28 16:26] VITALS: BP 141/98; PULSE 76; RESP 19; TEMP 97.8; O2SAT 98
== END 2025-04-28 16:28 | disposition home or self-care (01) ==
LOC: ER 12:20
DX: R07.9 Chest pain, unspecified (principal); M79.603 Pain in arm, unspecified; J44.9 Chronic obstructive pulmonary disease, unspecified; I10 Essential (primary) hypertension; F41.9 Anxiety disorder, unspecified; Z86.19 Personal history of other infectious and parasitic diseases; Z79.85 Long-term (current) use of injectable non-insulin antidiabetic drugs; Z79.899 Other long term (current) drug therapy; Z98.890 Other specified postprocedural states
CPT/HCPCS: 36415; 71045; 80048; 83880; 84484; 85025; 93005; 99285